=== PATIENT | male | born 1960 | race African-American/Black ===

== ENCOUNTER 2024-02-04 16:24 | Emergency (ER) | payer SELFPAY ==
[~2024-02-04] VITALS: Ht 182.9 cm; Wt 114.0 kg
[2024-02-04 16:26] VITALS: BP 131/87; PULSE 87; RESP 17; TEMP 98.6; O2SAT 99
== END 2024-02-04 21:45 | disposition left against medical advice (07) ==
LOC: ER 16:24
DX: R19.7 Diarrhea, unspecified (principal); R10.9 Unspecified abdominal pain; E11.9 Type 2 diabetes mellitus without complications; I10 Essential (primary) hypertension; E78.00 Pure hypercholesterolemia, unspecified; Z98.890 Other specified postprocedural states; Z85.9 Personal history of malignant neoplasm, unspecified
CPT/HCPCS: 99283